=== PATIENT | male | born 1995 | race African-American/Black ===

== ENCOUNTER 2016-08-12 19:21 | Emergency (ER) | payer OTHER ==
[~2016-08-12] VITALS: Ht 177.8 cm; Wt 72.6 kg
[~2016-08-12 19:21] MED LIST: NOHOMEMEDICATIONS
[2016-08-12 20:04] LABS: ABSOLUTE NEUTROPHILS 5.7 thou/uL (1.4-8.2); BASOPHILS 0.7 % (0.0-2.0); EOSINOPHILS 0.7 % (0.0-3.0); HEMATOCRIT 43.1 % (42.0-52.0); HEMOGLOBIN 14.5 gm/dL (14.0-18.0); LYMPHOCYTES 16.6 % (24.0-44.0); MCHC 33.6 g/dL (28.0-37.0); MCV 86.2 fL (80.0-100.0); MONOCYTES 3.9 % (1.0-8.0); PLATELET COUNT 209 thou/uL (150-400); POLYS 78.1 % (36.0-66.0); RDW 14.4 % (10.5-14.5); WBC 7.2 thou/uL (4.0-11.0)
[2016-08-12 20:06] LABS: MANUAL DIFF NO
[2016-08-12 20:14] LABS: ANION GAP 4 mmol/L (7-16); BUN 10 mg/dL (7-18); CALCIUM 9.4 mg/dL (8.5-10.1); CHLORIDE 108 mmol/L (98-107); CO2 30 mmol/L (21-32); CREATININE 1.2 mg/dL (0.7-1.3); GLUCOSE 98 mg/dL (74-106); POTASSIUM 4.4 mmol/L (3.5-5.1); SODIUM 142 mmol/L (136-145)
[2016-08-12 20:18] LABS: ALBUMIN 4.2 g/dL (3.4-5.0); ALKALINE PHOSPHATASE 74 U/L (46-116); DIRECT BILIRUBIN < 0.1 mg/dL (<0.1-0.3); SGOT 20 U/L (15-37); SGPT 25 U/L (30-65); TOTAL BILIRUBIN 0.5 mg/dL (<0.1-1.0); TOTAL PROTEIN 7.9 g/dL (6.4-8.2)
[2016-08-12] MEDS ORDERED: PHENERGAN 25 MG25 M1 PO (20:31)
[2016-08-12 20:48] VITALS: BP 117/65
== END 2016-08-12 20:49 | disposition home or self-care (01) ==
LOC: ER 19:21
PROVIDERS: Emergency Medicine
DX: R11.2 Nausea with vomiting, unspecified (principal); F12.10 Cannabis abuse, uncomplicated; F17.210 Nicotine dependence, cigarettes, uncomplicated

== ENCOUNTER 2016-09-17 17:03 | Emergency (ER) | payer OTHER ==
[~2016-09-17] VITALS: Ht 177.8 cm; Wt 72.6 kg
[~2016-09-17 17:03] MED LIST changes: +PHENERGAN 25 MG25 M1 PO
[2016-09-17 17:32] LABS: HEMATOCRIT 46.6 % (42.0-52.0); HEMOGLOBIN 15.8 gm/dL (14.0-18.0); MCH 28.8 pg (26.0-34.0); MCHC 33.9 g/dL (28.0-37.0); MCV 84.8 fL (80.0-100.0); PLATELET COUNT 210 thou/uL (150-400); RBC 5.49 mil/uL (4.50-6.00); RDW 14.1 % (10.5-14.5); WBC 11.9 thou/uL (4.0-11.0)
[2016-09-17 17:36] LABS: MANUAL DIFF YES
[2016-09-17 17:37] LABS: CALCIUM 10.4 mg/dL (8.5-10.1); CREATININE 1.5 mg/dL (0.7-1.3); POTASSIUM 3.9 mmol/L (3.5-5.1)
[2016-09-17 17:41] LABS: ALBUMIN 5.2 g/dL (3.4-5.0); TOTAL BILIRUBIN 2.2 mg/dL (<0.1-1.0); TOTAL PROTEIN 9.2 g/dL (6.4-8.2)
[2016-09-17] MEDS ORDERED: PRILOSEC 20 MG20 MG PO (17:45)
[2016-09-17] MEDS ORDERED: ZOFRAN ODT8 MG PO (17:45)
[2016-09-17 17:46] LABS: URINE BILIRUBIN 2+ (Negative); URINE BLOOD 2+ (Negative); URINE COLOR YELLOW; URINE GLUCOSE-RANDOM* NEGATIVE (Negative); URINE KETONES 3+ (Negative); URINE LEUKOCYTES-REFLEX TRACE (Negative); URINE PROTEIN (DIPSTICK) 3+ (Negative); URINE SPECIFIC GRAVITY >= 1.030 (1.003-1.035)
[2016-09-17 17:48] LABS: ICTOTEST (BILI CONFIRMATORY) Positive (Negative)
[2016-09-17 17:58] LABS: CALCIUM OXALATE 0-3 Few /LPF (None Seen); SQUAMOUS >10 Many /LPF (0-3)
[2016-09-17 17:59] LABS: HYALINE CASTS 4-10 Moderate /LPF (None Seen); URINE WBC-REFLEX >25 Many /HPF (0-5)
[2016-09-17 18:18] LABS: ABSOLUTE NEUTROPHILS 10.1 thou/uL (1.4-8.2); TOTAL CELL COUNT 100
[2016-09-17 18:19] LABS: ANISOCYTOSIS SLIGHT; BURR CELLS FEW
[2016-09-17 18:57] LABS: DIRECT BILIRUBIN 0.1 mg/dL (<0.1-0.3); TOTAL BILIRUBIN 1.3 mg/dL (<0.1-1.0)
[2016-09-17] MEDS ORDERED: KEFLEX500 MG PO (19:07)
[2016-09-17 19:10] VITALS: BP 126/72
== END 2016-09-17 19:15 | disposition home or self-care (01) ==
LOC: ER 17:03
PROVIDERS: Emergency Medicine
DX: E87.2 Acidosis (principal); N39.0 Urinary tract infection, site not specified; R11.2 Nausea with vomiting, unspecified; F17.210 Nicotine dependence, cigarettes, uncomplicated; F15.10 Other stimulant abuse, uncomplicated